=== PATIENT | male | born 1965 | race Caucasian/White ===

== ENCOUNTER 2020-11-26 01:52 | Outpatient (CLI) | payer OTHER, MEDICAID, SELFPAY ==
[2020-11-26] MEDS: Normal Saline Flush 10 ML SYR IVP (10:37)
[2020-11-26] MEDS: Gadoterate meglumine 20 ML VIAL 19 ML IVP (10:37)
--- NOTE | 2020-11-26 11:00 | DI.MRI_ITS ---
EXAM: MR IAC BRAIN WO/W CLINICAL HISTORY: VERTIGO,R42,LT EAR OTORRHEA,H92.12,CHRONIC DISEASE LT EAR,H93.92 TECHNIQUE: Multiplanar multisequence MRI of the brain was performed. Both noninfused and contrast i nfused sequences were performed. IV Contrast injected was 19 cc Dotarem. Also performed high-resolution sub millimeter slice thickness sequence through the internal auditory canals. Also performed conventional pre and post contrast whole brain sequences. COMPARISON: No exams were available for comparison FINDINGS: CEREBRAL PARENCHYMA: No evidence of intracranial hemorrhage, mass effect nor shift of midline structu re. No extraaxial fluid collections. Ventricles are not enlarged nor shifted. There is no significant focal signal abnormality in the cerebellar hemispheres nor within the lara, m idbrain, and thalami. There is no abnormal signal abnormality in the periventricular white matter. There are no ring enhancing lesions in the brain. There is no abnormal meningeal enhancement. INTERNAL AUDITORY CANALS: There is no evidence of mass in the cerebellopontine angles and there is no evidence of intra canalicular mass. No evidence of intra canalicular acoustic neuroma-schwannoma. PITUITARY GLAND: No mass nor parasellar abnormality. No obvious abnormality in the cavernous sinuses. FLOW VOIDS: The expected flow void are noted. No evidence of obvious aneurysm nor obvious vascular ma lformation. Left vertebral artery is dominant PARANASAL SINUSES: The visualized paranasal sinuses appear unremarkable. No abnormal signal in the ma stoid air cells ORBITS: No obvious abnormal findings. OTHER: Incidentally noted is a right frontal benign-appearing scalp lesion which measures 11 millimet ers AP by 5 millimeters wide. This is probably a sebaceous cyst. IMPRESSION: 1. No significant intracranial findings. No evidence of acoustic neuroma-schwannoma. 2. No ring enhancing lesions in the brain and no abnormal meningeal enhancement, focal or diffuse. 3. Right frontal scalp region sebaceous cyst incidentally noted. DATA REPOSITORY:
== END 2020-11-26 02:12 ==
PROVIDERS: PCP Physician Assistant; Visit Provider Otolaryngology Otolaryngology/Facial Plastic Surgery
DX: R42 Dizziness and giddiness (principal); H92.12 Otorrhea, left ear; L72.3 Sebaceous cyst
CPT/HCPCS: 70553